=== PATIENT | female | born 1975 | race Native Hawaiian/Other Pacific Islander ===

== ENCOUNTER 2017-12-16 14:50 | Inpatient (IN) | payer OTHER ==
[2017-12-16] MEDS ORDERED: Sodium Chloride 0.9% 1,000 ML IV ONE (15:43)
[2017-12-16] MEDS ORDERED: Sodium Chloride 0.9% 1,000 ML ONE (16:08)
[2017-12-16 16:12] LABS: BASO # 0.1 K/uL (0.0-0.2); BASO % 0.9 % (0.0-2.0); EOS # 0.5 K/uL (0.0-0.7); HEMOGLOBIN 7.6 g/dL (11.0-16.0); LYMPH # 2.5 K/uL (1.0-4.3); LYMPH % 25.2 % (20.0-40.0); MEAN CELL VOLUME 83.6 fL (81.0-99.0); MEAN CORPUSCULAR HEMOGLOBIN 27.8 pg (27.0-31.0); MEAN CORPUSCULAR HGB CONC 33.3 g/dL (33.0-37.0); MEAN PLATELET VOLUME 7.2 fL (7.2-11.7); MONO # 0.6 K/uL (0.0-0.8); MONO % 6.4 % (0.0-10.0); NEUT # 6.2 K/uL (1.8-7.0); NEUT % 62.5 % (50.0-75.0); RBC 2.74 Mil/uL (3.80-5.20); RED CELL DISTRIBUTION WIDTH 14.4 % (11.5-14.5); WHITE BLOOD COUNT 9.9 K/uL (4.8-10.8)
[2017-12-16 16:16] LABS: PROTHROMBIN TIME 11.4 SECONDS (9.7-12.2)
[2017-12-16 16:29] LABS: ALB/GLOB RATIO 1.3 (1.0-2.1); ALBUMIN 4.5 g/dL (3.5-5.0); ALT/SGPT 40 U/L (9-52); AST/SGOT 32 U/L (14-36); BLOOD UREA NITROGEN 11 mg/dL (7-17); GFR AFRICAN-AMERICAN > 60; GFR NON-AFRICAN AMERICAN > 60
[2017-12-16 16:34] LABS: HCG,QUALITATIVE URINE NEGATIVE (NEGATIVE)
[2017-12-16 16:35] LABS: SQUAMOUS EPITHIAL < 1 /hpf (0-5); URINE BACTERIA RARE (<OCC); URINE BILIRUBIN NEGATIVE (NEGATIVE); URINE BLOOD 3+ (NEGATIVE); URINE CLARITY Clear (Clear); URINE COLOR Straw (YELLOW); URINE GLUCOSE (UA) NORMAL (Normal); URINE LEUKOCYTE ESTERASE NEG Leu/uL (Negative); URINE PROTEIN NEGATIVE (NEGATIVE); URINE UROBILINOGEN NORMAL mg/dL (0.2-1.0)
--- NOTE | 2017-12-16 17:11 | C.PDOC ---
History Of Present Illness 42 yo female was sent to ED by for blood transfusion due to low hemoglobin found today. Pt admits, heavy irregular menstrual period for past month.yesterday, had blood work done and early today was called by for blood transfusion. Otherwise, pt denies dizziness, weakness, headache, vertigo, CP, SOB, dyspnea, palpitation, abd. pain, V/D, denies any otther active complaints. AT [facility] time of evaluation, pt appears comfortable, not in nay apparent distress. Time Seen by Provider: 12/16/17 15:41 Chief Complaint (Nursing): Female Genitourinary History Per: Patient Past Medical History Reviewed: Historical Data, Nursing Documentation, Vital Signs Vital Signs: Last Vital Signs Temp 97.7 F 12/16/17 15:01 Pulse 74 12/16/17 18:07 Resp 20 12/16/17 18:07 BP 116/77 12/16/17 18:07 Pulse Ox 100 12/16/17 18:07 - Medical History PMH: HTN, Hypercholesterolemia, Migraine Surgical History: Appendectomy, Cholecystectomy Family History: States: No Known Family Hx - Social History Hx Alcohol Use: Yes Hx Substance Use: No - Immunization History Hx Tetanus Toxoid Vaccination: No Hx Influenza Vaccination: No Hx Pneumococcal Vaccination: No Review Of Systems Except As Marked, All Systems Reviewed And Found Negative. Constitutional: Negative for: Fever, Chills, Weakness, Malaise Eyes: Negative for: Vision Change ENT: Negative for: Ear Discharge, Nose Discharge, Throat Pain, Throat Swelling Cardiovascular: Negative for: Chest Pain, Palpitations Respiratory: Negative for: Cough, Shortness of Breath, Wheezing Gastrointestinal: Negative for: Nausea, Vomiting, Abdominal Pain, Diarrhea Genitourinary: Positive for: Vaginal Bleeding. Negative for: Dysuria Skin: Negative for: Rash Neurological: Negative for: Weakness, Numbness Physical Exam - Physical Exam Appears: Well, Non-toxic, No Acute Distress Skin: Warm, Dry, Pale Eye(s): bilateral: PERRL Nose: No Discharge Oral Mucosa: Moist, No Drooling Throat: No Drooling Neck: Trachea Midline, Supple Cardiovascular: Rhythm Regular, No Murmur, No JVD Respiratory: No Decreased Breath Sounds, No Accessory Muscle Use, No Stridor, No Wheezing Gastrointestinal/Abdominal: Soft, No Tenderness, No Distention, No Guarding Back: Normal Inspection Extremity: Normal ROM, No Pedal Edema, No Deformity, No Swelling ED Course And Treatment - Laboratory Results Result Diagrams: 12/16/17 16:02 12/16/17 16:02 Lab Interpretation: Abnormal Urine POC: Negative ECG: Interpreted By Me, Viewed By Me Interpretation Of ECG: SR@73/min, NAD,Q wave and t wave inversion in III, no acute ST-T changes. O2 Sat by Pulse Oximetry: 100 Pulse Ox Interpretation: Normal Progress Note: Blood work review, H/H-03/15. Case discussed with and admission arranged, requested 2U PRBC and requested UNDERPRESSER HAND evaluation. results review and discussed with patient. Transfusion risk vs benefits review with patient, consent signed. Pt understand and agrees with plan. Disposition - Disposition Disposition: HOSPITALIZED Disposition Time: 17:14 Condition: STABLE - Clinical Impression Clinical Impression: Dysfunctional uterine bleeding, Anemia
--- NOTE | 2017-12-16 19:44 | US ---
EXAM: US Pelvis Complete, Transabdominal US Pelvis, Transvaginal US Duplex Arterial/Venous of the Pelvis, Complete CLINICAL HISTORY: 42 years old, female; Signs and symptoms; Other: Vaginal bleeding; Additional info: Vaginal bleeding, acute anemia TECHNIQUE: Real-time transabdominal and transvaginal pelvic ultrasound (complete) with image documentation. Transvaginal imaging was used for better evaluation of the endometrium and adnexa. Real-time duplex ultrasound scan of the arterial and venous flow of the pelvis with color Doppler flow and spectral waveform analysis. COMPARISON: No relevant prior studies available. FINDINGS: Uterus/cervix: The uterus measures 8.8 x 4.5 x 6.4 cm. Endometrial stripe measures 1.3 cm in thickness. Nabothian cysts are seen within the cervix. A fluid collection is noted in the fundic portion of the endometrial cavity measuring 0.8 x 0.4 by 3.9 cm. No myometrial mass. Right ovary: The right ovary measures 1.8 x 1.5 x 2 cm.. Blood flow is seen in the right ovary on color Doppler examination. Left ovary: The left ovary measures 5.1 x 2.4 x 2.9 cm and contains a simple follicle measuring 4.2 cm in maximum diameter. Blood flow is seen in the left ovary on color Doppler examination. Free fluid: No free fluid. Bladder: Unremarkable as visualized. Wall is normal thickness for degree of distention. IMPRESSION: 1. Small amount of fluid noted within the endometrial cavity. This is consistent with patient's history of vaginal bleeding. Endometrial stripe is normal in thickness for a menstruating female. EXAM: US Pelvis Complete, Transabdominal EXAM DATE/TIME: Exam ordered 12/16/2017 5:40 PM CLINICAL HISTORY: 42 years old, female; Signs and symptoms; Other: Vaginal bleeding; Additional info: Vaginal bleeding, acute anemia TECHNIQUE: Real-time transabdominal pelvic ultrasound (complete) with image documentation. COMPARISON: No relevant prior studies available. FINDINGS: Uterus/cervix: Transabdominally, the uterus measures 8 x 5.5 x 6.5 cm.. The endometrial stripe measures 1.8 cm in thickness. No myometrial mass. The ovaries are not seen as separate structures on the transabdominal portion the study. Free fluid: No free fluid. Bladder: The bladder is poorly distended on the transabdominal portion of the examination. IMPRESSION: 1. The bladder is poorly distended. The ovaries are not clearly seen. 2. Apparent thickening of the endometrial stripe. This may be related to volume averaging affects. Please see the report for the transvaginal portion of the study.
--- NOTE | 2017-12-16 20:56 | CP.PCM.CON ---
History of Present Illness - History of Present Illness History of Present Illness: Pt is 42yo who was sent to the ER with a Hgb 7.6 from her PMD to have a blood transfusion. Pt states that she has been having abnormal uterine bleeding since August. She bleed for 2 weeks from August through September and stopped for 3 days and has been bleeding consistently from November 21 until today. She states that the bleeding is much custodian today. Pt denies lightheadness or dizziness or feeling fatigue. The hgb was discovered incidentally from her annual exam. Pt states that she did not have a pap or has seen the [facility] for 18 years. She was scheduled to see a [facility] this Friday. Review of Systems - Review of Systems All systems: reviewed and no additional remarkable complaints except - Reproductive: Female Reproductive:Female: Menses >/= 8 Days, Menses Variable, Heavy Menses, Abnormal Vaginal Bleeding - Menstruation Menstruation: Cycle >35 Days, Cycle Variable, Menses 1-7 Days, Heavy Menses, Abnormal Vaginal Bleeding Past Patient History - Tetanus Immunizations Tetanus Immunization: Unknown - Past Medical History & Family History Past Medical History?: Yes Past Family History: Reviewed and not pertinent - Past Social History Smoking Status: Never Smoked Chewing Tobacco Use: No Cigar Use: No Alcohol: Social Drugs: Denies - CARDIAC Hx Hypercholesterolemia: Yes Hx Hypertension: Yes - NEUROLOGICAL Hx Neurological Disorder: No Hx Alzheimer's Disease: No HX Cerebrovascular Accident: No Hx Dementia: No Hx Dizziness: No Hx Meningitis: No Hx Migraine: Yes Hx Syncope: No - INTEGUMENTARY Hx Eczema: Yes - MUSCULOSKELETAL/RHEUMATOLOGICAL Hx Falls: No - GENITOURINARY/GYNECOLOGICAL Hx Genitourinary Disorders: Yes Other/Comment: Vag bleed - PSYCHIATRIC Hx Substance Use: No - SURGICAL HISTORY Hx Appendectomy: Yes Hx Cholecystectomy: Yes - ANESTHESIA Hx Anesthesia: Yes Hx Anesthesia Reactions: No Meds Allergies/Adverse Reactions: Allergies Allergy/AdvReac Type Severity Reaction Status Date / Time No Known Allergies Allergy Verified 12/16/17 15:04 Physical Exam - Constitutional Appears: No Acute Distress - Head Exam Head Exam: ATRAUMATIC - Rectal Exam Rectal Exam: Deferred Results - Vital Signs Recent Vital Signs: Last Vital Signs Temp 97.8 F 12/16/17 20:45 Pulse 76 12/16/17 20:45 Resp 20 12/16/17 20:45 BP 118/72 12/16/17 20:45 Pulse Ox 100 12/16/17 18:30 - Labs Result Diagrams: 12/16/17 16:02 12/16/17 16:02 Labs: Laboratory Results - last 24 hr 12/16/17 12/16/17 12/16/17 16:02 16:02 16:02 WBC 9.9 RBC 2.74 L Hgb 7.6 L Hct 22.9 L MCV 83.6 MCH 27.8 MCHC 33.3 RDW 14.4 Plt Count 432 H MPV 7.2 Neut % (Auto) 62.5 Lymph % (Auto) 25.2 [place] % (Auto) 6.4 Eos % (Auto) 5.0 H Baso % (Auto) 0.9 Neut # (Auto) 6.2 Lymph # (Auto) 2.5 [place] # (Auto) 0.6 Eos # (Auto) 0.5 Baso # (Auto) 0.1 PT 11.4 INR 1.0 APTT 33 Sodium 138 Potassium 3.8 Chloride 102 Carbon Dioxide 24 Anion Gap 16 BUN 11 Creatinine 0.6 L Est GFR ( Amer) > 60 Est GFR (Non-Af Amer) > 60 Random Glucose 98 Calcium 9.0 Total Bilirubin 0.4 AST 32 ALT 40 Alkaline Phosphatase 40 Total Protein 7.9 Albumin 4.5 Globulin 3.4 Albumin/Globulin Ratio 1.3 Urine Color Urine Clarity Urine pH Ur Specific [place] Urine Protein Urine Glucose (UA) Urine Ketones Urine Blood Urine Nitrate Urine Bilirubin Urine Urobilinogen Ur Leukocyte Esterase Urine WBC (Auto) Urine RBC (Auto) Ur Squamous Epith Cells Urine Bacteria Urine HCG, Qual Blood Type Antibody Screen 12/16/17 12/16/17 16:02 16:16 WBC RBC Hgb Hct MCV MCH MCHC RDW Plt Count MPV Neut % (Auto) Lymph % (Auto) [place] % (Auto) Eos % (Auto) Baso % (Auto) Neut # (Auto) Lymph # (Auto) [place] # (Auto) Eos # (Auto) Baso # (Auto) PT INR APTT Sodium Potassium Chloride Carbon Dioxide Anion Gap BUN Creatinine Est GFR ( Amer) Est GFR (Non-Af Amer) Random Glucose Calcium Total Bilirubin AST ALT Alkaline Phosphatase Total Protein Albumin Globulin Albumin/Globulin Ratio Urine Color Straw Urine Clarity Clear Urine pH 5.0 Ur Specific [place] 1.005 Urine Protein Negative Urine Glucose (UA) Normal Urine Ketones Negative Urine Blood 3+ H Urine Nitrate Negative Urine Bilirubin Negative Urine Urobilinogen Normal Ur Leukocyte Esterase Neg Urine WBC (Auto) 1 Urine RBC (Auto) 11 H Ur Squamous Epith Cells < 1 Urine Bacteria Rare Urine HCG, Qual Negative Blood Type O POSITIVE Antibody Screen Negative - Impressions Impression: - Imaging and Cardiology US - abdomen Status: Pending Assessment & Plan - Assessment and Plan (Free Text) Assessment: Abnormal uterine bleeding Anemia Plan: Abnormal Uterine bleedin) Anemia: transfusing 2 units. repeat cbc 6hours post transfusion. 2) Abnormal uterine bleeding recommend follow up with [facility] pelvis sono: Normal. recommend: LABS: (CAN BE DONE OUTPATIENT) -> UPT or BHCG (r/o ), TSH, prolactin, FSH, estradiol levels. PT, PTT, INR. Will need either D&C or endometrial biopsy in the future. Pap smear; (last pap 18 years ago) Lis called into her pharmacy. - Date & Time Date: 12/16/17 Time: 21:03
[2017-12-17 00:22] VITALS: RESP 20
[2017-12-17 00:45] VITALS: O2SAT 97
[2017-12-17 03:56] VITALS: TEMP 97.8
[2017-12-17 07:32] LABS: BASO # 0.1 K/uL (0.0-0.2); BASO % 0.7 % (0.0-2.0); EOS # 0.5 K/uL (0.0-0.7); EOS % 5.8 % (0.0-4.0); HEMOGLOBIN 9.4 g/dL (11.0-16.0); LYMPH # 1.7 K/uL (1.0-4.3); LYMPH % 21.3 % (20.0-40.0); MEAN CELL VOLUME 82.3 fL (81.0-99.0); MEAN CORPUSCULAR HEMOGLOBIN 27.8 pg (27.0-31.0); MEAN CORPUSCULAR HGB CONC 33.8 g/dL (33.0-37.0); MEAN PLATELET VOLUME 7.1 fL (7.2-11.7); MONO # 0.6 K/uL (0.0-0.8); MONO % 7.1 % (0.0-10.0); NEUT # 5.2 K/uL (1.8-7.0); NEUT % 65.1 % (50.0-75.0); NRBC % 0.1 % (0.0-2.0); RBC 3.37 Mil/uL (3.80-5.20); RED CELL DISTRIBUTION WIDTH 14.2 % (11.5-14.5)
[2017-12-17 07:51] LABS: ALB/GLOB RATIO 1.3 (1.0-2.1); ALT/SGPT 38 U/L (9-52); AST/SGOT 35 U/L (14-36); BLOOD UREA NITROGEN 12 mg/dL (7-17); CALCIUM 8.6 mg/dl (8.6-10.4); GFR AFRICAN-AMERICAN > 60; GFR NON-AFRICAN AMERICAN > 60
[2017-12-17 08:04] VITALS: BP 102/63; PULSE 76
--- NOTE | 2017-12-17 08:29 | CP.PCM.HP ---
History of Present Illness - History of Present Illness History of Present Illness: CC: low hemoglobin Pateint has HTN. Patient with irregular menstruation since aug. Lately feels light headed and feels head is empty. She wound take some food and rest. She did labs and was noted to have Hg 7.6. She was advise tansfusion, Present on Admission - Present on Admission Any Indicators Present on Admission: Yes History of DVT/PE: No History of Uncontrolled Diabetes: No Urinary Catheter: No Decubitus Ulcer Present: No Review of Systems - Review of Systems Systems not reviewed;Unavailable: Acuity of Condition - Constitutional Constitutional: Headache, Weakness. absent: Daytime Sleepiness, Lethargy, Malaise, Night Sweats, Weight Loss - EENT Eyes: absent: Blurred Vision, Exophthalmos, Pain, Requires Corrective Lenses, Sees Flashes, Loss of Vision Ears: Disequilibrium, Dizziness. absent: Decreased Hearing Nose/Mouth/Throat: absent: Nose Pain, Change in Voice, Hoarsness, Mouth Lesions , Mouth Pain - Cardiovascular Cardiovascular: absent: Chest Pain, Dyspnea, Irregular Heart Rhythm, Leg Edema, Orthopnea, Palpitations, Pedal Edema - Respiratory Respiratory: absent: Cough, Chest Congestion, Excessive Mucous Production, Change in Mucous Color - Gastrointestinal Gastrointestinal: absent: Abdominal Pain, Bloating, Diarrhea, Fecal Incontinence - Genitourinary Genitourinary: absent: Dysuria, Nocturia, Freq UTI - Menstruation Menstruation: Heavy Menses, Abnormal Vaginal Bleeding - Musculoskeletal Musculoskeletal: absent: Back Pain, Loss of Height, Muscle Weakness, Numbness - Integumentary Integumentary: absent: Bleeding Lesions, Photosensitivity, Rash - Neurological Neurological: absent: Abnormal Hearing, Numbness, Radicular Pain, Syncope, Tingling Past Patient History - Infectious Disease Hx of Infectious Diseases: None - Tetanus Immunizations Tetanus Immunization: Unknown - Past Medical History & Family History Past Medical History?: Yes Past Family History: Reviewed and not pertinent - Past Social History Smoking Status: Never Smoked Chewing Tobacco Use: No Cigar Use: No Alcohol: Social Drugs: Denies - CARDIAC Hx Hypercholesterolemia: Yes Hx Hypertension: Yes - NEUROLOGICAL Hx Neurological Disorder: No Hx Alzheimer's Disease: No HX Cerebrovascular Accident: No Hx Dementia: No Hx Dizziness: No Hx Meningitis: No Hx Migraine: Yes Hx Syncope: No - INTEGUMENTARY Hx Eczema: Yes - MUSCULOSKELETAL/RHEUMATOLOGICAL Hx Falls: No - GENITOURINARY/GYNECOLOGICAL Hx Genitourinary Disorders: Yes Other/Comment: Vag bleed - PSYCHIATRIC Hx Substance Use: No - SURGICAL HISTORY Hx Appendectomy: Yes Hx Cholecystectomy: Yes - ANESTHESIA Hx Anesthesia: Yes Hx Anesthesia Reactions: No Meds Allergies/Adverse Reactions: Allergies Allergy/AdvReac Type Severity Reaction Status Date / Time No Known Allergies Allergy Verified 12/16/17 15:04 Physical Exam - Constitutional Appears: Well - Eye Exam Eye Exam: Normal appearance - ENT Exam ENT Exam: Mucous Membranes Moist - Neck Exam Neck exam: Positive for: Full Rom. Negative for: Lymphadenopathy, Normal Inspection, Thyromegaly - Respiratory Exam Respiratory Exam: Clear to Auscultation Bilateral. absent: Rales, Rhonchi, Wheezes - Cardiovascular Exam Cardiovascular Exam: REGULAR RHYTHM, +S1, +S2. absent: JVD, Systolic Murmur - GI/Abdominal Exam GI & Abdominal Exam: Soft. absent: Rebound, Tenderness - Extremities Exam Extremities exam: Positive for: full ROM, normal capillary refill. Negative for : calf tenderness, joint swelling, pedal edema Results - Vital Signs Recent Vital Signs: Last Vital Signs Temp 97.8 F 12/17/17 08:02 Pulse 76 12/17/17 08:02 Resp 20 12/17/17 08:02 BP 102/63 12/17/17 08:02 Pulse Ox 97 12/17/17 08:02 - Labs Result Diagrams: 12/17/17 07:27 12/17/17 07:27 Labs: Laboratory Results - last 24 hr 12/16/17 12/16/17 12/16/17 16:02 16:02 16:02 WBC 9.9 RBC 2.74 L Hgb 7.6 L Hct 22.9 L MCV 83.6 MCH 27.8 MCHC 33.3 RDW 14.4 Plt Count 432 H MPV 7.2 Neut % (Auto) 62.5 Lymph % (Auto) 25.2 [place] % (Auto) 6.4 Eos % (Auto) 5.0 H Baso % (Auto) 0.9 Neut # (Auto) 6.2 Lymph # (Auto) 2.5 [place] # (Auto) 0.6 Eos # (Auto) 0.5 Baso # (Auto) 0.1 PT 11.4 INR 1.0 APTT 33 Sodium 138 Potassium 3.8 Chloride 102 Carbon Dioxide 24 Anion Gap 16 BUN 11 Creatinine 0.6 L Est GFR ( Amer) > 60 Est GFR (Non-Af Amer) > 60 Random Glucose 98 Calcium 9.0 Total Bilirubin 0.4 AST 32 ALT 40 Alkaline Phosphatase 40 Total Protein 7.9 Albumin 4.5 Globulin 3.4 Albumin/Globulin Ratio 1.3 Urine Color Urine Clarity Urine pH Ur Specific [place] Urine Protein Urine Glucose (UA) Urine Ketones Urine Blood Urine Nitrate Urine Bilirubin Urine Urobilinogen Ur Leukocyte Esterase Urine WBC (Auto) Urine RBC (Auto) Ur Squamous Epith Cells Urine Bacteria Urine HCG, Qual Blood Type Antibody Screen 12/16/17 12/16/17 12/17/17 16:02 16:16 07:27 WBC 8.0 RBC 3.37 L Hgb 9.4 L Hct 27.8 L MCV 82.3 MCH 27.8 MCHC 33.8 RDW 14.2 Plt Count 434 H MPV 7.1 L Neut % (Auto) 65.1 Lymph % (Auto) 21.3 [place] % (Auto) 7.1 Eos % (Auto) 5.8 H Baso % (Auto) 0.7 Neut # (Auto) 5.2 Lymph # (Auto) 1.7 [place] # (Auto) 0.6 Eos # (Auto) 0.5 Baso # (Auto) 0.1 PT INR APTT Sodium Potassium Chloride Carbon Dioxide Anion Gap BUN Creatinine Est GFR ( Amer) Est GFR (Non-Af Amer) Random Glucose Calcium Total Bilirubin AST ALT Alkaline Phosphatase Total Protein Albumin Globulin Albumin/Globulin Ratio Urine Color Straw Urine Clarity Clear Urine pH 5.0 Ur Specific [place] 1.005 Urine Protein Negative Urine Glucose (UA) Normal Urine Ketones Negative Urine Blood 3+ H Urine Nitrate Negative Urine Bilirubin Negative Urine Urobilinogen Normal Ur Leukocyte Esterase Neg Urine WBC (Auto) 1 Urine RBC (Auto) 11 H Ur Squamous Epith Cells < 1 Urine Bacteria Rare Urine HCG, Qual Negative Blood Type O POSITIVE Antibody Screen Negative 12/17/17 07:27 WBC RBC Hgb Hct MCV MCH MCHC RDW Plt Count MPV Neut % (Auto) Lymph % (Auto) [place] % (Auto) Eos % (Auto) Baso % (Auto) Neut # (Auto) Lymph # (Auto) [place] # (Auto) Eos # (Auto) Baso # (Auto) PT INR APTT Sodium 140 Potassium 4.2 Chloride 103 Carbon Dioxide 23 Anion Gap 18 BUN 12 Creatinine 0.6 L Est GFR ( Amer) > 60 Est GFR (Non-Af Amer) > 60 Random Glucose 100 Calcium 8.6 Total Bilirubin 0.7 AST 35 ALT 38 Alkaline Phosphatase 40 Total Protein 7.0 Albumin 4.0 Globulin 3.0 Albumin/Globulin Ratio 1.3 Urine Color Urine Clarity Urine pH Ur Specific [place] Urine Protein Urine Glucose (UA) Urine Ketones Urine Blood Urine Nitrate Urine Bilirubin Urine Urobilinogen Ur Leukocyte Esterase Urine WBC (Auto) Urine RBC (Auto) Ur Squamous Epith Cells Urine Bacteria Urine HCG, Qual Blood Type Antibody Screen Assessment & Plan - Assessment and Plan (Free Text) Assessment: Symptomatic Anemia; HTN; Abnormal uterine bleed [id number] Cont med For Lasteda c/o Gyne
[2017-12-17] MEDS ORDERED: Pneumococcal 23-Valent Vaccine IM ONE (10:00)
--- NOTE | 2017-12-18 00:02 | CARD ---
APPROVED REPORT EKG Measurement Heart [id number] <Conclusion> Normal sinus rhythm Cannot rule out Inferior infarct, age undetermined Abnormal ECG
== END 2017-12-17 10:15 | disposition home or self-care (01) | DRG 812 ==
LOC: C.ER 14:50 → C.9E 17:10 → C.3T 18:41
PROVIDERS: ADMIT Internal Medicine; ATTEND Internal Medicine
DX: D64.9 Anemia, unspecified (principal); N93.8 Other specified abnormal uterine and vaginal bleeding; I10 Essential (primary) hypertension; N92.6 Irregular menstruation, unspecified; E78.00 Pure hypercholesterolemia, unspecified